=== PATIENT | male | born 1985 | race Caucasian/White ===

== ENCOUNTER 2023-10-28 10:21 | Emergency (ER) | payer SELFPAY ==
[~2023-10-28] VITALS: Ht 170.2 cm; Wt 84.0 kg
[2023-10-28 10:23] VITALS: PULSE 109
[2023-10-28 10:29] VITALS: BP 127/74; RESP 16; TEMP 98.6; O2SAT 100
[2023-10-28] MEDS: FLUORESCEIN SODIUM 1MG/STRIP LEFTEYE ONE (13:11)
[2023-10-28] MEDS: TETRACAINE 0.5% OPHTH DROPS 4ML LEFTEYE ONE (13:11)
[2023-10-28] MEDS ORDERED: TRIMO LEFTEYE (13:14)
== END 2023-10-28 14:06 | disposition home or self-care (01) ==
LOC: ER 10:21
DX: H10.89 Other conjunctivitis (principal)
CPT/HCPCS: 99283; Z7610